=== PATIENT | male | born 1950 | race Caucasian/White ===

== ENCOUNTER 2017-10-04 09:00 | Outpatient (RCR) | payer MEDICARE, OTHER, SELFPAY ==
--- NOTE | 2017-09-27 10:56 | HP.PTEVAL_ITS ---
Patient's Visit Information SURINDER GIVENS is a 67 year old M referred to Physical Therapy by Niki Griffith DO with a diagnosis of Lumbar spine OA. Date of Evaluation: 09/27/17 Physical Therapist: Omar Mcdonnell PT, - Visit Plan Frequency: 2x /Week Duration: 4 Weeks Plan: Lumbar flexion bias. Start with aerobic activity in recumbent position and LE flexibility. Introduce strengthening interventions in gravity reduced positions and progress as tolerated. Modalities prn. Pt with hx of cardiac bypass sx in 2006, previous R TKA and achilles lengthening in past. - Subjective Subjective: Pt is a 67 y/o male referred for lumbar OA. He reports a 1 1/2 year history of this problem that has gradually worsened. He reports L sided low back pain that will progress to the L hip and posterior thigh with prolonged walking. He describes his symptoms as an ache. He denies any symptoms in the R LE. He reports ability to ambulate about 10 mintues on average before having to sit down to rest. Denies injection or surgery history. Had osteopathic manipulation performed in past with minimal relief. Aggrevating factors: walking , standing up from chair. Easing factors: sitting, medication. Occupation: contract accountant. Denies n/t in LEs, weakness, b/b incontinence, and recent trauma. SOCAIL : . VOCATION: [employer] - Pain low back Pain Intensity (Out of 10): 7 Pain Intensity Range: 0, 10 L radicular Pain Intensity (Out of 10): 7 Pain Intensity Range: 0, 10 - Objective OBSERVATION: Standing posture shows hyperlordotic lumbar spine with mild R shift , flattened thoracic spine. Evident pain when standing from chair and first few steps. PALPATION: No tenderness, level iliac crest and greater trochanter. GAIT: Mild L LE antalgia. ROM: Lumbar flexion 75%, extension 50%, B LF 50%. Hip flexion, extension, ER PROM WFL. B IR severe limitation but does not reproduce pain. NEURO: Dermatomes intact, myotomes intact, DTRs: L L3 1+, R L3 2+, B S1 0. FLEXIBILITY: Moderate tightness B HS. - Goals Goal 1:: Pt will report ability to ambulate for at least 20 minutes before having to rest due to increased symptoms to improve tolerance with community ambulation. Goal Time Frame: 4-6 Weeks Goal 2:: Pt will report minimal limtation with detective and intelligence analyst due to his low back symptoms. Goal Time Frame: 4-6 Weeks Goal 3:: Pt will improve lumbar ROM by 25% to improve tolerance with detective and intelligence analyst and ADLs. Goal Time Frame: 4-6 Weeks Goal 4:: Pt will be independent with HEP to sustain gains made in the clinic. Goal Time Frame: 4-6 Weeks - Rehabilitation Potential Physical Therapy Diagnosis: Pt is a 67 y/o male referred for lumbar spine OA. He exhibits a loss of lumbar segmental mobility that places him in a hyperlordic posture during standing positions. His symptoms are worsened with walking and other extension biased positions. He has activity limitations that include decreased ambulation distance, standing tolerance, and working overhead. This limits his participation with community ambulation and detective and intelligence analyst. Pt will benefit from skilled PT services to address his mentioned impairments to maximize function. Rehabilitation Potential: Good - Anticipated Interventions Patient/Client Instruction: Educate patient on: Condition, Plan of Care, Benefits of Fitness Program For the Purpose of:: To decrease pain, To increase ROM, To improve muscle performance and motor function, To increase tolerance to activity/condition/ position, To improve performance and independence with ADL's, To improve ability of physical actions for home/community/work/leisure, To improve gait and locomotor functions, To improve health of tissue, To decrease soft tissue restriction, To increase flexibility/ROM, To improve endurance, To reduce risk of recurrence, To improve self management Therapeutic Exercise to Include: Strength training, Endurance training, Body mechanics, Postural training, Flexibilty training, Gait and locomotor training, Active ROM, Dynamic Lumbar Stabilization For the Purpose of:: To decrease pain, To increase ROM, To improve muscle performance and motor function, To increase tolerance to activity/condition/ position, To improve ability of physical actions for home/community/work/leisure , To improve gait and locomotor functions, To improve health of tissue, To decrease soft tissue restriction, To increase flexibility/ROM, To improve endurance, To reduce risk of recurrence, To improve self management TENS: Yes IF ES: Yes Cryotherapy (ice pack, ice massage): Yes Thermo therapy (hot pack): Yes Ultrasound (thermal/non thermal): Yes Pelvic traction supine: Yes For the Purpose of:: To decrease pain, To increase ROM, To improve health of tissue, To decrease soft tissue restriction Thank you for the opportunity to evaluate your patient. For Medicare and Medicare HMO plans, please review the plan of care and approve it. It will need to be FAXED BACK to us at [phone] for Medicare purposes. Please let me know if there are questions or concerns regarding this plan of care. Physician Signature: Date:
--- NOTE | 2018-02-17 11:35 | HP.PT.NRP ---
HP - Discharge Summary (1) - Patient Information SURINDER GIVENS was seen in my office for initial evaluation on 09/27/17. The following Plan of Care was established for this patient: Initial Frequency: 2x /Week Initial Duration: 4 Weeks - Anticipated Interventions Patient/Client Instruction: Educate patient on: Condition, Plan of Care, Benefits of Fitness Program For the Purpose of:: To decrease pain, To increase ROM, To improve muscle performance and motor function, To increase tolerance to activity/condition/position, To improve performance and independence with ADL's, To improve ability of physical actions for home/community/work/leisure, To improve gait and locomotor functions, To improve health of tissue, To decrease soft tissue restriction, To increase flexibility/ROM, To improve endurance, To reduce risk of recurrence, To improve self management Therapeutic Exercise to Include: Strength training, Endurance training, Body mechanics, Postural training, Flexibilty training, Gait and locomotor training, Active ROM, Dynamic Lumbar Stabilization For the Purpose of:: To decrease pain, To increase ROM, To improve muscle performance and motor function, To increase tolerance to activity/condition/position, To improve ability of physical actions for home/community/work/leisure, To improve gait and locomotor functions, To improve health of tissue, To decrease soft tissue restriction, To increase flexibility/ROM, To improve endurance, To reduce risk of recurrence, To improve self management TENS: Yes IF ES: Yes Cryotherapy (ice pack, ice massage): Yes Thermo therapy (hot pack): Yes Ultrasound (thermal/non thermal): Yes Pelvic traction supine: Yes For the Purpose of:: To decrease pain, To increase ROM, To improve health of tissue, To decrease soft tissue restriction This patient was last seen in our office 10/04/17. Pertinent comments regarding their Physical therapy will appear below: Patient seen for PT for lumbar pain focusing on DLS and ,posture ,patient education ,thus is d/c At this point I will be discontinuing this patient from physical therapy. I would be happy to see this patient again in the future if found appropriate by the physician. Thank you! Omar Mcdonnell, PT,
== END 2017-10-04 19:00 | disposition home or self-care (01) ==
LOC: PT 09:00
DX: M43.06 Spondylolysis, lumbar region (principal)
CPT/HCPCS: 97110; 97162

== ENCOUNTER 2019-01-13 11:30 | Outpatient (RCR) | payer MEDICARE, OTHER, SELFPAY ==
--- NOTE | 2018-12-19 08:40 | HP.PTEVAL ---
Patient's Visit Information SURINDER GIVENS is a 68 year old M referred to Physical Therapy by Ra Álvarez DPM with a diagnosis of L achilles tendonitis. Date of Evaluation: 12/19/18 Physical Therapist: Sha Boyer PT, ATC - Visit Plan Frequency: 2x /Week Duration: 2 Weeks Plan: L calf stretching and strengthening, DTR, stick rollout, foam roller, and HEP - Subjective Findings: Pt. has pain in L Achilles tendon. 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 Pt. has tried stretching with no positive results. Pt. has trouble walking due to Achilles tightness. Pt reports pain at rest is 0/10. Pt stated pain occurs when moving the ankle or walking. Pt reports pain at worst is 8/10. Pt. stated he has LBP he says is related to Achilles pain. Pt reports he is able to walk up stairs by keeping foot flat. 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 Pt has no sleep disturbances due to pain. - Pain L calf pain Pain Intensity (Out of 10): 0 Pain Intensity Range: 8 - Objective Neuro: B LE sensation is WNL to light touch. B patellar reflex= 1/3. Palpation: Significant muscle guarding in L gastroc region. No obvious deformity. Pt c/o pain with light touch. ROM: R ankle DF= 7, PF= 35; L ankle DF= 2, PF= 42 degrees. MMT: R ankle 5/5 throughout, L ankle DF= 5/5, PF= 4-/5 - Goals Goal 1:: Decrease L achilles pain x 50% to aid with ambulation Goal Time Frame: 2-4 Weeks Goal 2:: Increase L ankle DF ROM x 5-10 degrees to aid with decreasing pain Goal Time Frame: 2-4 Weeks Goal 3:: Increase L ankle PF strength x 1 grade to aid with stair negotiation Goal Time Frame: 2-4 Weeks Goal 4:: I with HEP Goal Time Frame: 2-4 Weeks - Rehabilitation Potential Physical Therapy Diagnosis: L achilles tendon pain, weakness, and limited flexibility secondary to L achilles tendonitis Rehabilitation Potential: Good - Anticipated Interventions Patient/Client Instruction: Educate patient on: Condition, Plan of Care For the Purpose of:: To improve self management Therapeutic Exercise to Include: Strength training, Endurance training, Flexibilty training, Active ROM For the Purpose of:: To decrease pain, To increase ROM, To improve muscle performance and motor function Cryotherapy (ice pack, ice massage): Yes Ultrasound (thermal/non thermal): Yes For the Purpose of:: To decrease pain Thank you for the opportunity to evaluate your patient. For Medicare and Medicare HMO plans, please review the plan of care and approve it. It will need to be FAXED BACK to us at [phone] for Medicare purposes. For Medicare only, by signing this I certify the plan of care. Please let me know if there are questions or concerns regarding this plan of care. Physician Signature: Date:
--- NOTE | 2019-03-04 13:54 | HP.PTDCNRP_ITS ---
HP - Discharge Summary (1) - Patient Information SURINDER GIVENS was seen in my office for initial evaluation on 12/19/18. The following Plan of Care was established for this patient: Initial Frequency: 2x /Week Initial Duration: 2 Weeks - Anticipated Interventions Patient/Client Instruction: Educate patient on: Condition, Plan of Care For the Purpose of:: To improve self management Therapeutic Exercise to Include: Strength training, Endurance training, Flexibilty training, Active ROM For the Purpose of:: To decrease pain, To increase ROM, To improve muscle perfo rmance and motor function Cryotherapy (ice pack, ice massage): Yes Ultrasound (thermal/non thermal): Yes For the Purpose of:: To decrease pain This patient was last seen in our office . Pertinent comments regarding their Physical therapy will appear below: Pt was treated for 7 PT visits for L achilles tendon pain through the date of 01/13/19. Pt has not returned through todays date and is therefore discontinued at this time. At this point I will be discontinuing this patient from physical therapy. I would be happy to see this patient again in the future if found appropriate by the physician. Thank you! Sha Boyer, PT, ATC
== END 2019-01-13 19:00 | disposition home or self-care (01) ==
LOC: PT 11:30
PROVIDERS: Referring Provider Podiatrist Foot & Ankle Surgery; Visit Provider Podiatrist Foot & Ankle Surgery
DX: M76.62 Achilles tendinitis, left leg (principal)
CPT/HCPCS: 97035; 97110; 97161

== ENCOUNTER → 2019-04-07 13:11 | Outpatient (CLI) | payer MEDICARE, OTHER, SELFPAY ==
--- NOTE | 2019-04-07 13:15 | ART_ITS ---
Reason For Study: claudication Procedure A bilateral lower extremity continuous wave Doppler with analog waveform analysis,segmental pressures,and ankle brachial indexes with exercise. Left Segmental Pressures Left brachial= 162mmHg. Left posterior tibial artery = 210mmHg. Left dorsalis pedis artery = 202mmHg. Left digit = 179 mmHg. The left dorsalis pedis waveforms are triphasic. The left posterior tibial artery waveforms are triphasic. Right Segmental Pressures Right brachial= 160mmHg. Right posterior tibial artery = 190mmHg. Right dorsalis pedis artery = 178mmHg. Right digit = 176 mmHg. The right dorsalis pedis waveforms are triphasic. The right posterior tibial artery waveforms are triphasic. Indices The right ankle brachial index by the dorsalis pedis is 1.1. The right ankle brachial index by the posterior tibial artery is 1.17. The right digital-brachial index is 1.09. The left ankle brachial index by the posterior tibial artery is 1.3. The left ankle brachial index by the dorsalis pedis is 1.25. The left digital-brachial index is 1.1. Interpretation Summary Triphasic Doppler waveforms are noted at ankle level bilaterally. Pulse-volume recordings are satisfactory at all levels bilaterally, including low-thigh, calf, ankle, and digital levels. Resting ankle-brachial indices are normal bilaterally. Digital-brachial indices are normal bilaterally. The patient was then subjected to a period of exercise, following which ankle pressures augmented bilaterally, which is a normal physiological response. There is no evidence of significant arterial occlusive disease in the lower extremities bilaterally. Ordering Physician: Rafita Atkinson Performed By: KAMRON YNU T
== END ==
PROVIDERS: Referring Provider Student in an Organized Health Care Education/Training Program; Visit Provider Student in an Organized Health Care Education/Training Program
DX: I73.9 Peripheral vascular disease, unspecified (principal); R29.898 Other symptoms and signs involving the musculoskeletal system; I25.10 Atherosclerotic heart disease of native coronary artery without angina pectoris
CPT/HCPCS: 93923

== ENCOUNTER 2024-06-07 11:55 | Emergency (ER) | payer MEDICARE, OTHER, SELFPAY ==
[2024-06-07 11:57] VITALS: BP 123/87; PULSE 100; RESP 16; TEMP 36; O2SAT 97
[2024-06-07 12:13] VITALS: O2SAT 97; BMI 31.4
[2024-06-07 12:14] VITALS: O2SAT 99
--- NOTE | 2024-06-07 12:14 | EKG12_ITS ---
Test Reason : SOB Blood Pressure : */* mmHG Vent. Rate : 93 BPM Atrial Rate : * BPM P-R Int : * ms QRS Dur : 168 ms QT Int : 420 ms P-R-T Axes : * 110 251 degrees QTcB Int : 522 ms Atrial fibrillation Right bundle branch block Abnormal ECG Confirmed by SRINIVASAN MATOS, STEPH ([id number]), marketing editor EDITH WOODS ([id number]) on 06/08/2024 8:20:05 AM Referred By: Confirmed By: STEPH MATTSON MD
--- NOTE | 2024-06-07 12:19 | ED.VIS.DYS ---
HPI <SRAVANTHI Lanza - Last Filed: 06/07/24 17:32> History of Present Illness Chief Complaint: Shortness of Breath Narrative Narrative: Patient presenting today with shortness of breath he has had over the last several days. He reports waking up at night feeling short of breath and dyspnea with exertion. He denies orthopnea. He does have a history of CHF, CAD, T2DM, HTN, A-fib on Eliquis, and HLD. He has been compliant with his Eliquis and denies any history of blood clots or recent surgery/travel/immobilization. He denies any worsening leg edema or significant short-term weight gain. He is currently being treated for cellulitis in the left lower extremity. He denies fevers, chills, chest pain, abdominal pain, nausea, and vomiting. PFSH <SRAVANTHI Lanza - Last Filed: 06/07/24 17:32> PFSH Home Medications ?Medication ?Instructions ?Recorded ?Last Taken ?Type amlodipine 10 mg-valsartan 320 mg 1 tab PO DAILY 01/31/13 07/16/13 08:00 History tablet (Exforge) aspirin 81 mg chewable tablet 81 mg PO DAILY 01/31/13 07/16/13 08:00 History clopidogrel 75 mg tablet 75 mg PO DAILY 01/31/13 07/16/13 08:00 History glucosamine-chondroitin 500 mg-400 1 ea PO DAILY 01/31/13 07/16/13 08:00 History mg tablet hydrochlorothiazide 25 mg tablet 25 mg PO DAILY 01/31/13 07/16/13 08:00 History insulin aspart U-100 100 unit/mL 0 units subcut PRN PRN Not 01/31/13 Unknown History subcutaneous solution (Novolog Specified U-100 Insulin aspart) metformin 500 mg tablet,extended 1,000 mg PO QHS 01/31/13 07/15/13 20:00 History release 24 hr nebivolol 20 mg tablet (Bystolic) 10 mg PO QHS 01/31/13 07/15/13 20:00 History potassium gluconate 595 mg (99 mg) 298 mg PO QHS 01/31/13 07/15/13 20:00 History tablet tamsulosin 0.4 mg capsule 0.4 mg PO QHS 01/31/13 07/15/13 20:00 History isosorbide mononitrate 30 mg 30 mg PO DAILY ##30 07/17/13 Unknown Rx tablet,extended release 24 hr apixaban 5 mg tablet (Eliquis) 5 mg PO BID 06/07/24 Unknown History Allergy/AdvReac Type Severity Reaction Status Date / Time adhesive tape (tape) Allergy Unknown PT UNSURE Verified 06/07/24 11:57 OF REACTION etodolac (From [place]) Allergy Swelling Verified 06/07/24 11:57 [id number] Reductase AdvReac Severe MUSCLE Verified 06/07/24 11:57 Inhibitor CRAMPS Social History Smoking Status: Never smoker ROS <SRAVANTHI Lanza - Last Filed: 06/07/24 17:32> ROS ED Constitutional Constitutional ED: Denies chills or fever(s) Cardiovascular Cardiovascular: Denies chest pain, orthopnea or paroxysmal nocturnal dyspnea Respiratory/Chest Respiratory/Chest: Reports dyspnea on exertion; Denies cough, orthopnea, paroxysmal nocturnal dyspnea, tachypnea or wheezing Gastrointestinal Gastrointestinal: Denies abdominal pain, nausea or vomiting Musculoskeletal Musculoskeletal: Denies arthralgias or myalgias Integumentary Denies rash Neurologic Neurologic: Denies weakness EXAM <SRAVANTHI Lanza - Last Filed: 06/07/24 17:32> Physical Exam Const Vital Signs: 06/07/24 11:57 06/07/24 12:13 06/07/24 12:14 Temperature 96.8 F L Temperature Source Temporal Pulse Rate 100 Respiratory Rate 16 Respiratory Effort Short of Breath Blood Pressure 123/87 H Blood Pressure Mean 99 Pulse Ox 97 99 Oxygen Delivery Method Room Air Room Air Room Air 06/07/24 13:51 06/07/24 15:16 Temperature 98.2 F Temperature Source Pulse Rate 97 91 Respiratory Rate 16 18 Respiratory Effort Blood Pressure 115/58 L 130/97 H Blood Pressure Mean 77 108 Pulse Ox 96 98 Oxygen Delivery Method Room Air Positive well nourished, well developed and no apparent distress General Appearance ED: well developed HEENT Reports normocephalic and head/scalp atraumatic Mouth ED: Yes moist mucous membranes normal Eyes PERRL and EOMs intact bilaterally Neck full ROM and supple Chest Wall inspection of chest normal Resp normal respiratory effort and clear to auscultation bilaterally Cardio regular rate and regular rhythm GI soft to palpation, non-tender, non-distended and no masses Back/Spine normal ROM and normal to inspection Extremity normal to inspection and full ROM General Extremety ED: Negative for edema General Extremity: Negative for edema Neuro oriented x3, CN's II-XII intact bilaterally, moves all extremities, no focal motor deficits and no sensory deficits noted Sensorium / Orientation: awake and alert Psych mental status grossly normal and thought process normal Skin no rashes or lesions noted and no wounds <Dr. Austin Stuart MD - Last Filed: 06/07/24 17:36> Physical Exam Const Vital Signs: 06/07/24 11:57 06/07/24 12:13 06/07/24 12:14 Temperature 96.8 F L Temperature Source Temporal Pulse Rate 100 Respiratory Rate 16 Respiratory Effort Short of Breath Blood Pressure 123/87 H Blood Pressure Mean 99 Pulse Ox 97 99 Oxygen Delivery Method Room Air Room Air Room Air 06/07/24 13:51 06/07/24 15:16 Temperature 98.2 F Temperature Source Pulse Rate 97 91 Respiratory Rate 16 18 Respiratory Effort Blood Pressure 115/58 L 130/97 H Blood Pressure Mean 77 108 Pulse Ox 96 98 Oxygen Delivery Method Room Air MDM <SRAVANTHI Lanza - Last Filed: 06/07/24 17:32> [facility] Narrative Medical decision making narrative: Patient presenting today with dyspnea primarily with exertion he has had over the last several days. He does occasionally wake up at night feeling short of breath but is not necessarily gasping for breath. Recently treated for cellulitis in the left lower extremity, this looks improved, currently no signs of cellulitis, no erythema or warmth to the leg or foot. He is nontoxic-appearing, he has unremarkable vital signs, O2 saturation is 98% on room air. He does have a history of CHF, he has no leg edema. He reports that he had a echo just a few months ago that showed a ejection fraction slightly lower than normal. Low suspicion for PE given he is on Eliquis and is compliant with this. Labs were obtained, his CBC is unremarkable, creatinine 1.47, BUN 28, he reports that this is consistent with previous labs. Nonsignificant delta troponin. BNP is elevated at 5000 182. However, chest x-ray negative for acute cardiopulmonary abnormality, no pleural effusions. Reexamination he is doing well. He does have a follow-up appointment with his sales administration specialist at the beginning of June. I recommended he also follow-up with his PCP. He will be discharged home in stable condition. I have personally performed a face to face assessment of the patient and have reviewed the ZEE Note. I performed a substantive portion of the visit including all aspects of the following. My gayle findings include: History is remarkable for history of coronary disease, diabetes, dyslipidemia, hypertension and BMI of 31.5. He presents because he has been awake in the last couple of nights with shortness of breath. Does not report orthopnea or gasping for breath. He was recently treated for cellulitis of his left lower extremity leg and foot. and patient states it looks much better than it did. He denies chest discomfort with activity i.e. pressure, tightness, heaviness. He does endorse dyspnea with exertion the past week. This may represent his anginal equivalent. Exam is vital signs are essentially unremarkable. Blood pressure slightly elevated 123/87. HEENT exam is gross unremarkable. Lungs reveal no wheeze rales rhonchi. Breath sounds are symmetric. Heart is regular. Rate is normal. There is no murmur, gallop or rub. Abdomen soft nontender. There is no paraspinal megaly. Patient has swelling of the left leg and foot. There is some discoloration of the skin. There is no swelling, asymmetry, discoloration, leg vein distention, palp cord since lung distribution deep venous system. Medical Decision Making differential diagnosis would include respiratory infection, CHF, angina: Dyspnea. Workup included chest x-ray, troponin EKG CBC Other additions or changes: [None] Lab Data Labs: Laboratory Results - last 24 hr 06/07/24 06/07/24 12:25 14:20 WBC 5.6 RBC 4.47 L Hgb 13.7 Hct 42.2 MCV 94.4 H MCH 30.6 MCHC 32.5 RDW Std Deviation 50.2 H RDW Coeff of Sudha 14.4 Plt Count 285 MPV 9.7 Immature Gran % (Auto) 0.400 Neut % (Auto) 68.2 Lymph % (Auto) 16.[address] [place] % (Auto) 11.5 H Eos % (Auto) 2.7 Baso % (Auto) 0.7 Absolute Neuts (auto) 3.8 Absolute Lymphs (auto) 0.92 Nucleated RBC % 0 Sodium 139 Potassium 4.1 Chloride 102 Carbon Dioxide 24.1 Anion Gap 13 BUN 28 H Creatinine 1.47 H Estim Creat Clear Calc 53.71 Est GFR (MDRD) Non-Af 50 L BUN/Creatinine Ratio 19.3 Glucose 95 Calcium 9.0 Troponin T High Sens 40 H Troponin T Hi Sens 2 Hr 36 H NT pro BNP II 5182 H Radiography X-Ray: Read by ED Physician Diagnostic Testing: Clinical Impression(s) from Imaging Studies Chest X-Ray 06/07/24 12:30 IMPRESSION: No radiographic evidence of acute cardiopulmonary disease. Reading Location: [address] EKG Initial EKG: Comments: 93 bpm, atrial fibrillation, right bundle branch block, no ST elevation <Dr. Austin Stuart MD - Last Filed: 06/07/24 17:36> MDM MDM Narrative Medical decision making narrative: I have personally performed a face to face assessment of the patient and have reviewed the ZEE Note. I performed a substantive portion of the visit including all aspects of the following. My gayle findings include: History is remarkable for history of coronary disease, diabetes, dyslipidemia, hypertension and BMI of 31.5. He presents because he has been awake in the last couple of nights with shortness of breath. Does not report orthopnea or gasping for breath. He was recently treated for cellulitis of his left lower extremity leg and foot. and patient states it looks much better than it did. He denies chest discomfort with activity i.e. pressure, tightness, heaviness. He does endorse dyspnea with exertion the past week. This may represent his anginal equivalent. Exam is vital signs are essentially unremarkable. Blood pressure slightly elevated 123/87. HEENT exam is gross unremarkable. Lungs reveal no wheeze rales rhonchi. Breath sounds are symmetric. Heart is regular. Rate is normal. There is no murmur, gallop or rub. Abdomen soft nontender. There is no paraspinal megaly. Patient has swelling of the left leg and foot. There is some discoloration of the skin. There is no swelling, asymmetry, discoloration, leg vein distention, palp cord since lung distribution deep venous system. Medical Decision Making differential diagnosis would include respiratory infection, CHF, angina: Dyspnea. Workup included chest x-ray, troponin EKG CBC Other additions or changes: [None] History & Record Review Additional record(s) reviewed:: Prior inpatient record (Last admission of record is July 2013. He was admitted at that time for chest pain.He also has diagnosis of CAD with multiple stents. The nuclear stress test was equivocal.) Lab Data Attestation: I reviewed the patient's lab results. Lab results narrative: CBC is unremarkable. Basic metabolic panel is remarkable for creatinine of 1.47 and BUN of 28. Baseline creatinine is 1. Estimated GFR is 50. Patient's BNP is 5182. This is significantly elevated. Labs: Laboratory Results - last 24 hr 06/07/24 06/07/24 12:25 14:20 WBC 5.6 RBC 4.47 L Hgb 13.7 Hct 42.2 MCV 94.4 H MCH 30.6 MCHC 32.5 RDW Std Deviation 50.2 H RDW Coeff of Sudha 14.4 Plt Count 285 MPV 9.7 Immature Gran % (Auto) 0.400 Neut % (Auto) 68.2 Lymph % (Auto) 16.[address] % (Auto) 11.5 H Eos % (Auto) 2.7 Baso % (Auto) 0.7 Absolute Neuts (auto) 3.8 Absolute Lymphs (auto) 0.92 Nucleated RBC % 0 Sodium 139 Potassium 4.1 Chloride 102 Carbon Dioxide 24.1 Anion Gap 13 BUN 28 H Creatinine 1.47 H Estim Creat Clear Calc 53.71 Est GFR (MDRD) Non-Af 50 L BUN/Creatinine Ratio 19.3 Glucose 95 Calcium 9.0 Troponin T High Sens 40 H Troponin T Hi Sens 2 Hr 36 H NT pro BNP II 5182 H Radiography Chest X-Ray - ED: 2 View, Read by ED Physician (Cardiac size and silhouette normal. Lung parenchyma mild chronic changes. There is no infiltrate, effusion or pneumothorax. Osseous structures reveal some degenerative changes.), Unchanged, Normal, Mediastinum, No Acute Disease and Chronic Changes Diagnostic Testing: Clinical Impression(s) from Imaging Studies Chest X-Ray 06/07/24 12:30 IMPRESSION: No radiographic evidence of acute cardiopulmonary disease. Reading Location: [address] EKG Initial EKG: Attestation: I personally reviewed and interpreted this EKG as follows: Interpretation: Atrial Fibrillation (Rate is 93. There is a right bundle branch block. QRS duration is prolonged at 168 ms. QT duration 420 ms. [place] is to the right.) Discharge Plan Triage Chief Complaint: Shortness of Breath ED Midlevel Provider: Maggie Garcia ED Provider: Austin Stuart Dx/Rx/DC Orders Clinical Impression: History of CHF (congestive heart failure), Dyspnea, CAD (coronary artery disease), Diabetes mellitus, HTN (hypertension), Anticoagulant long-term use, Antiplatelet or antithrombotic long-term use Instructions: ED Dyspnea Prescriptions: No Action clopidogrel 75 MG tablet 75 mg PO DAILY Patient Comments: ANTIPLATELET tamsulosin 0.4 MG capsule 0.4 mg PO QHS Patient Comments: URINARY RETENTION insulin aspart U-100 [Novolog U-100 Insulin aspart] 100 UNIT/ML solution 0 units subcut PRN PRN (Reason: Not Specified) Patient Comments: DIABETES aspirin 81 MG tablet,chewable 81 mg PO DAILY Patient Comments: ANTIPLATELET hydrochlorothiazide 25 MG tablet 25 mg PO DAILY Patient Comments: BLOOD PRESSURE metformin 500 MG tablet 1,000 mg PO QHS Patient Comments: DIABETES glucosamine-chondroitin 1 EACH capsule 1 ea PO DAILY Patient Comments: FOOD SUPPLEMENT amlodipine-valsartan [Exforge] 1 TAB tablet 1 tab PO DAILY Patient Comments: BLOOD PRESSURE potassium gluconate 99 MG tablet 298 mg PO QHS Patient Comments: FOOD SUPPLEMENT nebivolol [Bystolic] 20 MG tablet 10 mg PO QHS Patient Comments: BLOOD PRESSURE isosorbide mononitrate 30 MG tablet 30 mg PO DAILY Qty: 30 0RF Patient Comments: HEART Eliquis 5 mg tablet 5 mg PO BID Primary Care Provider: Niki Griffith Referrals: Niki Griffith DO [Primary Care Provider] - 5-7 Days Activity Restrictions/Additional Instructions: Follow-up with your sales administration specialist and PCP. Return for any worsening symptoms. Print Language: Greenlandic Disposition Disposition: Home, Self Care Discharge Date/Time: 06/07/24 15:19
--- NOTE | 2024-06-07 12:30 | RAD_ITS ---
EXAM: CHEST PA AND LATERAL CLINICAL HISTORY: SOB COMPARISON: None. TECHNIQUE: PA and lateral views of the chest obtained. FINDINGS: Prior sternotomy noted. The cardiac silhouette is not enlarged. No evidence of pulmonary edema. Probable chronic lung changes. No pulmonary parenchymal consolidative opacities. No pneumothorax or significant pleural effusion. Mild thoracic spine degenerative changes are seen, along with DISH. No acute osseous abnormality is identified. RAD/Chest PA and Lateral IMPRESSION: No radiographic evidence of acute cardiopulmonary disease. Reading Location: [id number]
[2024-06-07 12:32] LABS: Absolute Lymphocyte Count 0.92 X10^3/uL (0.83-4.51); Absolute Neutrophil Count 3.8 X10^3/uL (2.0-7.7); Basophil# 0.04 X10^3/uL; Basophil% 0.7 % (0-1); Eosinophil# 0.15 X10^3/uL; Eosinophils% 2.7 % (0-5); Hematocrit 42.2 % (40-54); Hemoglobin 13.7 g/dL (13.0-16.5); Lymphocyte # 0.92 X10^3/ul (0.83-4.51); Lymphocyte % 16.5 % (19-41); Mean Corp Hgb Conc 32.5 g/dL (32-36); Mean Corpuscular Hgb 30.6 pg (27.0-32.0); Mean Corpuscular Volume 94.4 fL (80-94); Mean Platelet Vol. 9.7 fl (6.2-12.0); Monocyte# 0.64 X10^3/uL; Monocyte% 11.5 % (0-10); NRBC Flagged by Analyzer 0 % (0-5); Neutrophil # 3.81 X10^3/uL (2.7-7.7); Neutrophil % 68.2 % (47-70); Platelet Count 285 K/mm3 (150-450); RBC Distribution Width CV 14.4 % (11.6-14.6); RBC Distribution Width SD 50.2 fl (35.1-43.9); Red Blood Count 4.47 M/mm3 (4.6-6.2); White Blood Count 5.6 K/mm3 (4.4-11.0)
[2024-06-07 13:15] LABS: Anion Gap 13 (5-15); BUN 28 mg/dL (4-19); BUN/Creat Ratio 19.3 RATIO (10-20); Carbon Dioxide 24.1 mmol/L (21.0-32.0); Chloride 102 mmol/L (98-108); Creatinine, Serum 1.47 mg/dL (0.70-1.20); EST Glomerular Filtration Rate 50 (>60); Estimated Creatinine Clearance 53.71 ml/min (50-250); Glucose 95 mg/dL (70-99); Potassium 4.1 mmol/L (3.3-5.1); Pro- Brain NATRIURETIC PEPTIDE 5182 pg/mL (<=900); Sodium Level 139 mmol/L (133-145)
[2024-06-07 13:31] LABS: Troponin T High Sensitivity 40 ng/L (<=22)
[2024-06-07 13:51] VITALS: BP 115/58; PULSE 97; RESP 16; O2SAT 96
[2024-06-07 14:47] LABS: Troponin T High Sens 2 HR 36 ng/L (<=22)
[2024-06-07 15:16] VITALS: BP 130/97; PULSE 91; RESP 18; TEMP 36.8; O2SAT 98
== END 2024-06-07 15:19 | disposition home or self-care (01) ==
PROVIDERS: Physician Assistant; Emergency Provider Emergency Medicine; Visit Provider Emergency Medicine
DX: I11.0 Hypertensive heart disease with heart failure (principal); I50.9 Heart failure, unspecified; I48.91 Unspecified atrial fibrillation; E11.9 Type 2 diabetes mellitus without complications; Z79.4 Long term (current) use of insulin; L03.116 Cellulitis of left lower limb; I25.10 Atherosclerotic heart disease of native coronary artery without angina pectoris; E78.5 Hyperlipidemia, unspecified; Z79.01 Long term (current) use of anticoagulants; Z79.02 Long term (current) use of antithrombotics/antiplatelets; Z79.82 Long term (current) use of aspirin; Z79.84 Long term (current) use of oral hypoglycemic drugs; Z95.5 Presence of coronary angioplasty implant and graft
CPT/HCPCS: 71046; 80048; 83880; 84484; 85025; 93005; 99283; A4216